=== PATIENT | female | born 1935 | race Asian ===

== ENCOUNTER 2016-05-02 22:31 | Inpatient (IN) | payer MEDICARE, MEDICAID ==
[2016-05-02] MEDS ORDERED: Diatrizoate Meglumine/Diatri 30 mL Sol ONE (23:19)
--- NOTE | 2016-05-02 23:37 | ED Physician Chart ---
Chief Complaint/HPI - Patient Information Date Seen:: 05/02/16 Time Seen:: 23:00 Chief Complaint:: G-tube leaking History of Present Illness:: report received that there was a tear in the G-tube. Allergies:: Allergies Allergy/AdvReac Type Severity Reaction Status Date / Time No Known Allergies Allergy Verified 11/23/15 10:12 Historian:: EMS, Other (report from [facility]) Review:: Nurse's Note Reviewed Review of Systems - Review of Systems General/Constitutional: No fever Skin: No skin lesions Head: No headache Eyes: No loss of vision ENT: No earache Neck: No neck pain Cardio Vascular: No chest pain, No palpitations Pulmonary: No SOB GI: No nausea, No vomiting Musculoskeletal: No bone or joint pain Endocrine: No polyuria, No polydipsia Psychiatric: Prior psych history Hematopoietic: No bruising Allergic/Immuno: No urticaria Neurological: No syncope Past Medical History - Past Medical History Past Medical History: HTN, Asthma/COPD, Other (encephalopathy; anxiety) Family History: Other (unavailable) Social History: Care Facility Surgical History: PEG/GTube Medication: Reviewed Family Medical History - Family Member Mother History Unknown: Yes father History Unknown: Yes Physical Exam - Physical Examination Other Gen/Cons comments:: chronically ill appearing Head: Atraumatic Eyes: Lids, conjuctiva normal, PERRL Skin: Nl inspection, No skin lesions ENMT: External ears, nose nl Neck: No nuchal rigidity Respiratory: Nl effort/Exclusion, Clear to Auscultation, No Wheeze/Rhonchi/Rales Cardio Vascular: RRR, No murmur, gallop, rubs GI: No tenderness/rebounding/guarding, No organomegaly, No hernia, Normal BS's, Nondistended, No mass/bruits : No CVA tenderness Extremities: No tenderness or effusion Neuro/Psych: Alert/oriented, No focal deficits Misc: Normal back Labs/Radiology/EKG Results - Lab Results Results: Laboratory Results - last 24 hr 05/03/16 05/03/16 00:05 00:05 WBC 7.8 D RBC 4.89 Hgb 13.9 Hct 42.2 D MCV 86.3 MCH 28.5 MCHC Differential 33.0 RDW 13.1 Plt Count 255 MPV 7.6 Neutrophils % 66.0 Lymphocytes % 22.1 Monocytes % 8.6 Eosinophils % 2.8 Basophils % 0.5 Sodium 139 Potassium 3.8 Chloride 105 Carbon Dioxide 29.3 Anion Gap 8.5 BUN 16 Creatinine 0.6 Est GFR ( Amer) TNP Est GFR (Non-Af Amer) TNP BUN/Creatinine Ratio 26.7 Glucose 97 Calcium 9.7 Lipase 33 - Radiology Results Results: KUB after gastrograffin injected into G-tube: proper position of G-tube; obstipation Assessment - Procedures Procedures:: skin cleanse with betadine swab; G-tube removed and replaced with #22 Fr G-tube. ED Septic Shock - . Is Septic Shock (SBP<90, OR Lactate>4 mmol\L) present?: No Reassessment (Disposition) - Reassessment Reassessment Condition:: Unchanged - Diagnosis Diagnosis:: G-tube replacement; obstipation - Patient Disposition Admitted to:: Med/Surg Spoke to:: Ruperto Licona Admitting Medical Physician:: Ruperto Licona Condition at Disposition:: Stable, Unchanged
[2016-05-03 00:15] LABS: % BASOPHILS 0.5 % (0.0-2.0); % EOSINOPHILS 2.8 % (0.0-5.0); % LYMPHOCYTES 22.1 % (20.0-50.0); % MONOCYTES 8.6 % (2.0-10.0); HEMOGLOBIN 13.9 gm/dL (11.7-16.1); MEAN CELL VOLUME 86.3 fl (81-100); MEAN CORPUSCULAR HEMOGLOBIN 28.5 pg (27.0-31.0); MEAN PLATELET VOLUME 7.6 fl; NEUTROPHILE ABSOLUTE 5.2 Th/cmm (1.8-8.0); PLATELET COUNT 255 Th/cmm (150-400); RED BLOOD COUNT 4.89 Mil/cmm (3.80-5.20); RED CELL DISTRIBUTION WIDTH 13.1 % (11.5-20.0)
[2016-05-03 00:21] LABS: HEMATOCRIT 42.2 % (35.0-45.0); WHITE BLOOD COUNT 7.8 Th/cmm (4.8-10.8)
[2016-05-03 00:29] LABS: ANION GAP 8.5 (7.0-16.0); BUN - UREA NITROGEN 16 mg/dL (7-25); BUN/CREATININE RATIO 26.7; CALCIUM SERUM 9.7 mg/dL (8.6-10.3); CARBON DIOXIDE 29.3 mEq/L (21.0-31.0); CHLORIDE 105 mEq/L (98-107); CREATININE - SERUM 0.6 mg/dL (0.6-1.2); GLUCOSE 97 mg/dL (70-105); LIPASE 33 U/L (11-82); POTASSIUM SERUM 3.8 mEq/L (3.5-5.1); SODIUM SERUM 139 mEq/L (136-145)
[2016-05-03 10:12] LABS: % EOSINOPHILS 2.6 % (0.0-5.0); % LYMPHOCYTES 24.1 % (20.0-50.0); % MONOCYTES 9.6 % (2.0-10.0); % NEUTROPHILS 62.7 % (40.0-80.0); HEMATOCRIT 39.2 % (35.0-45.0); HEMOGLOBIN 13.1 gm/dL (11.7-16.1); MEAN CORPUSCULAR HEMOGLOBIN 28.5 pg (27.0-31.0); MEAN CORPUSCULAR HGB CONC 33.5 pg (28.0-36.0); MEAN PLATELET VOLUME 7.6 fl; NEUTROPHILE ABSOLUTE 3.3 Th/cmm (1.8-8.0); PLATELET COUNT 226 Th/cmm (150-400); RED BLOOD COUNT 4.61 Mil/cmm (3.80-5.20); RED CELL DISTRIBUTION WIDTH 13.3 % (11.5-20.0)
[2016-05-03 10:16] LABS: WHITE BLOOD COUNT 5.3 Th/cmm (4.8-10.8)
[2016-05-03 10:32] LABS: ALB/GLOB RATIO 0.8 (1.0-1.8); ALKALINE PHOSPHATASE 101 U/L (34-104); ANION GAP 12.7 (7.0-16.0); BILIRUBIN,TOTAL 0.4 mg/dL (0.3-1.0); BUN - UREA NITROGEN 15 mg/dL (7-25); CALCIUM SERUM 9.4 mg/dL (8.6-10.3); CARBON DIOXIDE 29.3 mEq/L (21.0-31.0); CHLORIDE 105 mEq/L (98-107); CREATININE - SERUM 0.5 mg/dL (0.6-1.2); GLUCOSE 95 mg/dL (70-105); SGOT 39 U/L (13-39); SGPT/ALT 80 U/L (7-52); SODIUM SERUM 143 mEq/L (136-145)
[2016-05-03 10:50] VITALS: BP 128/57
--- NOTE | 2016-05-03 11:30 | Diagnostic Imaging Report ---
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 Stool-filled nondilated large bowel noted. Water-soluble contrast was instilled through the patient's gastrostomy tube. There is opacification of the gastric lumen with free flow contrast into the small bowel. No extravasation. IMPRESSION: 1. Confirmation of gastrostomy tube within the gastric lumen.
[2016-05-03] MEDS ORDERED: Lacosamide 10 mg/mL 10mL UDC GT SCH (14:00)
--- NOTE | 2016-05-03 14:39 | Consultation ---
GASTROENTEROLOGY CONSULTATION REQUESTING PHYSICIAN: Durga Licona M.D. REASON FOR CONSULTATION: Dysphagia. HISTORY OF PRESENT ILLNESS: An 80-year-old female with possible dementia and anorexia and G-tube insertion, whose G-tube became cracked and malfunctioned and leaking. It was replaced in the ER with a replacement type G-tube of 22-Polish. Contrast KUB confirmed that the G-tube was in satisfactory position of the stomach. She also was noted to have some constipation. We were asked to see the patient to reevaluate her G-tube. It appears to be in proper position. She is not eating much. PAST MEDICAL HISTORY: As above. MEDICATIONS: Here are acetaminophen p.r.n., Dulcolax p.r.n., Catapres p.r.n., lacosamide, Ativan p.r.n., multivitamin, Zyprexa, Protonix and Pneumovax. ALLERGIES: No known drug allergies. SOCIAL HISTORY: No recent tobacco, alcohol or drugs. FAMILY HISTORY: Noncontributory. REVIEW OF SYSTEMS: A comprehensive 12-point review of system was conducted and was only present for the signs and symptoms present in the history of present illness. PHYSICAL EXAMINATION: VITAL SIGNS: Temperature 98.1, blood pressure is 133/79, pulse of 85, respirations 18, O2 sat 96% on room air. GENERAL: The patient is well-developed, well-nourished female in no acute distress. HEENT: Sclerae nonicteric. Oropharynx is clear. CARDIOVASCULAR: Regular rate and rhythm. LUNGS: Clear to auscultation bilaterally. ABDOMEN: Soft, nontender. Intact replacement type G-tube in the epigastrium. EXTREMITIES: No clubbing, cyanosis or edema. RECTAL: Deferred. LABORATORY DATA AND IMAGING: Complete blood count is normal. Chemistries including liver enzymes are essentially unremarkable except for an ALT of 80, lipase normal. Upper GI series confirmed the G-tube is in proper position in the stomach. ASSESSMENT: 1. Dysphagia with G-tube leak and dysfunction and tear requiring replacement in the ER. KUB confirmed that the G-tube is in proper position in the stomach. 2. Constipation. 3. Anorexia. RECOMMENDATIONS: 1. Stool softeners as needed. 2. May use G-tube for medications and feedings. 3. Oral diet as tolerated. Thank you, Dr. Licona, for involving us in the care of your patient. If you have any further questions, please call us. JOB# [id number] MTDD
[2016-05-03] MEDS ORDERED: Pneumococcal Vaccine 0.5 mL Vial IM ONE (15:00)
[2016-05-03] MEDS: Pantoprazole 40 mg/Packet GT SCH (16:05)
[2016-05-03] MEDS: Multivitamin 5 mL UDC GT SCH (16:05)
[2016-05-03] MEDS ORDERED: Fleet Enema 135 mL RC PRN (19:56)
[2016-05-03] MEDS ORDERED: Magnesium Hydroxide (MOM) 30 mL UDC GT PRN (19:56)
[2016-05-03] MEDS ORDERED: Albuterol/Ipratropium Neb 3 ML AERS HHN PRN (19:56)
--- NOTE | 2016-05-03 19:56 | General Progress Note ---
Subjective - Review of Systems Service Date: 05/03/16 ([id number] h&p dictated) Objective - Results Result Diagrams: 05/03/16 09:55 05/03/16 09:55 Recent Labs: Laboratory Last Values WBC 5.3 Th/cmm (4.8-10.8) D 05/03/16 09:55 RBC 4.61 Mil/cmm (3.80-5.20) 05/03/16 09:55 Hgb 13.1 gm/dL (11.7-16.1) 05/03/16 09:55 Hct 39.2 % (35.0-45.0) 05/03/16 09:55 MCV 85.0 fl (81-100) 05/03/16 09:55 MCH 28.5 pg (27.0-31.0) 05/03/16 09:55 MCHC Differential 33.5 pg (28.0-36.0) 05/03/16 09:55 RDW 13.3 % (11.5-20.0) 05/03/16 09:55 Plt Count 226 Th/cmm (150-400) 05/03/16 09:55 MPV 7.6 fl 05/03/16 09:55 Neutrophils % 62.7 % (40.0-80.0) 05/03/16 09:55 Lymphocytes % 24.1 % (20.0-50.0) 05/03/16 09:55 Monocytes % 9.6 % (2.0-10.0) 05/03/16 09:55 Eosinophils % 2.6 % (0.0-5.0) 05/03/16 09:55 Basophils % 1.0 % (0.0-2.0) 05/03/16 09:55 Sodium 143 mEq/L (136-145) 05/03/16 09:55 Potassium 4.0 mEq/L (3.5-5.1) 05/03/16 09:55 Chloride 105 mEq/L (98-107) 05/03/16 09:55 Carbon Dioxide 29.3 mEq/L (21.0-31.0) 05/03/16 09:55 Anion Gap 12.7 (7.0-16.0) 05/03/16 09:55 BUN 15 mg/dL (7-25) 05/03/16 09:55 Creatinine 0.5 mg/dL (0.6-1.2) L 05/03/16 09:55 Est GFR ( Amer) TNP 05/03/16 09:55 Est GFR (Non-Af Amer) TNP 05/03/16 09:55 BUN/Creatinine Ratio 30.0 05/03/16 09:55 Glucose 95 mg/dL (70-105) 05/03/16 09:55 Calcium 9.4 mg/dL (8.6-10.3) 05/03/16 09:55 Total Bilirubin 0.4 mg/dL (0.3-1.0) 05/03/16 09:55 AST 39 U/L (13-39) 05/03/16 09:55 ALT 80 U/L (7-52) H 05/03/16 09:55 Alkaline Phosphatase 101 U/L (34-104) 05/03/16 09:55 Total Protein 7.4 gm/dL (6.0-8.3) 05/03/16 09:55 Albumin 3.3 gm/dL (3.7-5.3) L 05/03/16 09:55 Globulin 4.1 gm/dL 05/03/16 09:55 Albumin/Globulin Ratio 0.8 (1.0-1.8) L 05/03/16 09:55 Lipase 33 U/L (11-82) 05/03/16 00:05 - Physical Exam Vitals and I&O: Vital Signs Temp 97.3 F 05/03/16 16:00 Pulse 86 05/03/16 16:00 Resp 17 05/03/16 16:00 BP 120/69 05/03/16 16:00 Pulse Ox 96 05/03/16 16:00 Intake & Output 05/03/16 05/03/16 05/04/16 06:59 18:59 06:59 Weight (lbs) 56.699 kg Active Medications: Current Medications Acetaminophen (Tylenol 650mg/20.3ml Suspension) 650 mg GT Q4H PRN PRN Reason: Fever/Pain Stop: 07/02/16 09:57 Bisacodyl (Dulcolax 5 Mg Ec Tab) 10 mg PO DAILY PRN PRN Reason: Constipation Stop: 07/03/16 08:59 Clonidine HCl (Catapres) 0.1 mg PO Q6H PRN PRN Reason: SBP >160 Stop: 07/02/16 09:34 Heparin Sodium (Porcine) (Heparin) 5,000 units SUBQ Q12HR [facility] Stop: 07/02/16 20:59 Lacosamide (Vimpat) 100 mg GT DAILY [facility] Stop: 07/02/16 13:59 Last Admin: 05/03/16 16:05 Dose: Not Given Lorazepam (Ativan) 1 mg GT Q6H PRN; Protocol PRN Reason: Anxiety/Agitation Stop: 07/02/16 09:54 Multivitamins/Vitamin C (Theragran) 5 ml GT DAILY [facility]OY[facility] Stop: 07/02/16 11:29 Last Admin: 05/03/16 16:05 Dose: Not Given Olanzapine (Zyprexa) 1.25 mg GT BID ZOYA PRN Reason: Protocol Stop: 07/02/16 16:59 Last Admin: 05/03/16 16:37 Dose: 1.25 mg Pantoprazole Sodium (Protonix) 40 mg GT QDAC [facility] Stop: 07/02/16 11:29 Last Admin: 05/03/16 16:05 Dose: Not Given - Procedures Procedures: Procedures Procedure Code Date CHANGE FEEDING DEVICE IN UP INTEST TRACT, 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
--- NOTE | 2016-05-03 20:30 | History & Physical ---
CHIEF COMPLAINT: G-tube malfunction. HISTORY OF PRESENT ILLNESS: This is an 80-year-old elderly female who is transferred for G-tube malfunction. The patient's gastrostomy tube was replaced in the ER, the G-tube 22-Polish. A KUB was done and it confirmed that it was in place. PAST MEDICAL HISTORY: Dementia, anorexia. MEDICATIONS: Please see medication reconciliation sheet. ALLERGIES: No drug allergies. SOCIAL HISTORY: Patient is a retirement resident. FAMILY HISTORY: Noncontributory. REVIEW OF SYSTEMS: Unable to obtain. The patient is confused. PHYSICAL EXAMINATION: GENERAL: The patient is an elderly female in no apparent distress. VITAL SIGNS: Temperature 98.1, blood pressure 132/79, heart rate of 85, respirations 18, O2 96%. HEENT: PERRLA. No nasal deviation. CARDIOVASCULAR: S1, S2 present. LUNGS: Clear bilaterally. SKIN: Warm and dry to touch. ABDOMEN: Soft, nontender, nondistended. LABORATORY DATA: WBC 5.3, H and H 13.1, 39.2, platelet 226. Sodium 142, potassium 4.0, BUN 15, creatinine 0.5, ____. ASSESSMENT: 1.G-tube malfunction 2.Dysphagia. 3.Constipation. 4.Anorexia. PLAN: Continue patient on IV fluids for hydration. GI consult. Continue current plan of care. JOB# [id number]
[2016-05-04] MEDS: Pantoprazole 40 mg/Packet GT SCH (08:33)
[2016-05-04] MEDS: Multivitamin 5 mL UDC GT SCH (08:40)
[2016-05-04] MEDS ORDERED: POTASSIUM CHLORIDE GT SCH (09:00)
[2016-05-04] MEDS ORDERED: SODIUM CL GT SCH (09:00)
[2016-05-04] MEDS ORDERED: Non-Formulary Item 1 EA (Vit C/Ascorbate Ca/Ascorb Sod [Vitamin C 500 Mg/15 Ml Liquid] 500 GT SCH (09:00)
[2016-05-04] MEDS ORDERED: Multivitamin 5 mL UDC GT SCH (09:00)
[2016-05-04] MEDS ORDERED: Pantoprazole 40 mg/Packet GT SCH (09:00)
[2016-05-04 09:31] LABS: % BASOPHILS 0.4 % (0.0-2.0); % EOSINOPHILS 2.6 % (0.0-5.0); % LYMPHOCYTES 26.7 % (20.0-50.0); % MONOCYTES 7.7 % (2.0-10.0); % NEUTROPHILS 62.6 % (40.0-80.0); HEMATOCRIT 39.9 % (35.0-45.0); HEMOGLOBIN 13.2 gm/dL (11.7-16.1); MEAN CELL VOLUME 85.7 fl (81-100); MEAN CORPUSCULAR HEMOGLOBIN 28.4 pg (27.0-31.0); MEAN CORPUSCULAR HGB CONC 33.1 pg (28.0-36.0); MEAN PLATELET VOLUME 8.1 fl; NEUTROPHILE ABSOLUTE 2.8 Th/cmm (1.8-8.0); PLATELET COUNT 219 Th/cmm (150-400); RED BLOOD COUNT 4.66 Mil/cmm (3.80-5.20); RED CELL DISTRIBUTION WIDTH 13.6 % (11.5-20.0); WHITE BLOOD COUNT 4.4 Th/cmm (4.8-10.8)
[2016-05-04 09:44] LABS: ALB/GLOB RATIO 0.8 (1.0-1.8); ALKALINE PHOSPHATASE 98 U/L (34-104); ANION GAP 7.3 (7.0-16.0); BILIRUBIN,TOTAL 0.3 mg/dL (0.3-1.0); BUN - UREA NITROGEN 21 mg/dL (7-25); CALCIUM SERUM 9.6 mg/dL (8.6-10.3); CHLORIDE 104 mEq/L (98-107); CREATININE - SERUM 0.6 mg/dL (0.6-1.2); GLUCOSE 127 mg/dL (70-105); POTASSIUM SERUM 4.3 mEq/L (3.5-5.1); SGOT 40 U/L (13-39); SGPT/ALT 80 U/L (7-52); SODIUM SERUM 138 mEq/L (136-145)
== END 2016-05-04 14:15 | DRG 394 ==
LOC: ER 22:31 → MSI 05-03 01:09
PROVIDERS: ADMIT Internal Medicine; ATTEND Internal Medicine
PROC: 0D20XUZ Change Feeding Device in Upper Intestinal Tract, External Approach (ICD-10-PCS; principal; 2016-05-03)
DX: K94.23 Gastrostomy malfunction (principal); E44.1 Mild protein-calorie malnutrition; R63.0 Anorexia; F03.90 Unspecified dementia, unspecified severity, without behavioral disturbance, psychotic disturbance, mood disturbance, and anxiety; R13.10 Dysphagia, unspecified; K59.00 Constipation, unspecified; I10 Essential (primary) hypertension; J45.909 Unspecified asthma, uncomplicated; F41.9 Anxiety disorder, unspecified; Y83.8 Other surgical procedures as the cause of abnormal reaction of the patient, or of later complication, without mention of misadventure at the time of the procedure; Y92.89 Other specified places as the place of occurrence of the external cause; Z68.22 Body mass index [BMI] 22.0-22.9, adult
CPT/HCPCS: 36415-UA; 80048-TC; 80053-TC; 83690-TC; 85025-TC; 94760; J1644; Z7610

== ENCOUNTER 2017-04-21 01:39 | Inpatient (IN) | payer MEDICARE, MEDICAID ==
[2017-04-21 02:16] LABS: HEMATOCRIT 42.1 % (41.0-60); HEMOGLOBIN 13.8 gm/dL (12-16); MEAN CELL VOLUME 85.2 fl (81-100); MEAN CORPUSCULAR HEMOGLOBIN 27.8 pg (27.0-31.0); MEAN CORPUSCULAR HGB CONC 32.7 pg (28.0-36.0); MEAN PLATELET VOLUME 7.5 fl; PLATELET COUNT 258 Th/cmm (150-400); RED BLOOD COUNT 4.94 Mil/cmm (3.80-5.20); RED CELL DISTRIBUTION WIDTH 14.3 % (11.5-20.0); WHITE BLOOD COUNT 9.1 Th/cmm (4.8-10.8)
[2017-04-21 02:30] LABS: ANION GAP 10.4 (7.0-16.0); BUN - UREA NITROGEN 17 mg/dL (7-25); CALCIUM SERUM 9.5 mg/dL (8.6-10.3); CARBON DIOXIDE 27.5 mEq/L (21.0-31.0); CHLORIDE 104 mEq/L (98-107); CREATININE - SERUM 0.5 mg/dL (0.6-1.2); GLUCOSE 102 mg/dL (70-105); POTASSIUM SERUM 3.9 mEq/L (3.5-5.1); SODIUM SERUM 138 mEq/L (136-145)
--- NOTE | 2017-04-21 02:32 | ED Physician Chart ---
ED Chief Complaint/HPI - Patient Information Date Seen:: 04/21/17 Time Seen:: 02:26 Chief Complaint:: Dislodged G tube History of Present Illness:: 81 yo female was found to have a dislodged G-tube about 3 hours ago. She was brought by BLS to ER. Allergies:: Allergies Allergy/AdvReac Type Severity Reaction Status Date / Time No Known Allergies Allergy Verified 04/21/17 01:49 Vitals:: Vital Signs - 8 hr 04/21/17 01:59 Temp 98.2 F HR 92 RR 18 BP 153/89 O2 Sat % 98 ED Review of Systems - Review of Systems General/Constitutional: No fever Skin: No bruising Head: No headache Eyes: No pain ENT: No nasal drainage Neck: No neck pain Cardio Vascular: No chest pain Pulmonary: No SOB GI: No nausea, No vomiting Musculoskeletal: No bone or joint pain Neurological: No focal symptoms ED Past Medical History - Past Medical History Past Medical History: HTN, Asthma/COPD, Seizures, Other (Dysphagia) Social History: Non Smoker, No Alcohol, No Drug Use Surgical History: None Family Medical History - Family Member Mother History Unknown: Yes father History Unknown: Yes Ethnicity: Non- ED Physical Exam - Physical Examination General/Constitutional: Awake Head: Atraumatic Eyes: PERRL Skin: No ecchymosis ENMT: Nasal exam nl Neck: No nuchal rigidity Respiratory: No Wheeze/Rhonchi/Rales Cardio Vascular: RRR, No murmur, gallop, rubs, NL S1 S2 GI: No tenderness/rebounding/guarding Other GI comments:: G tube was dislodged from the site. No bleeding, no purulent drainage Extremities: normal strength in all extremities Neuro/Psych: No focal deficits ED Labs/Radiology/EKG Results - Lab Results Results: Laboratory Tests 04/21/17 02:05 WBC 9.1 D RBC 4.94 Hgb 13.8 Hct 42.1 MCV 85.2 MCH 27.8 MCHC Differential 32.7 RDW 14.3 Plt Count 258 MPV 7.5 ED Assessment - Assessment General Assessment: Dislodged G-tube Assessment/Comments:: Insert a 20 Fr Gotti catheter to keep the G-tube site patent Admit to med surg for replacement of G-tube ED Septic Shock - . Is Septic Shock (SBP<90, OR Lactate>4 mmol\L) present?: No - <6hrs of presentation: Vital Signs: Vital Signs - 8 hr 04/21/17 01:59 Temp 98.2 F HR 92 RR 18 BP 153/89 O2 Sat % 98 ED Reassessment (Disposition) - Reassessment Reassessment Condition:: Unchanged - Patient Disposition Discharge/Transfer:: Acute Care w/in this hosp Admitting Medical Physician:: Ruperto Licona (s) ED Discharge Plan - Patient Disposition Admit/Discharge/Transfer: Acute Care w/in this hosp Condition at Disposition: Stable
[2017-04-21 02:33] LABS: INR 0.92 (0.5-1.4); PROTHROMBIN TIME (TEST) 9.6 SECONDS (9.5-11.5)
[2017-04-21 02:37] LABS: BAND NEUTROPHILE 2 % (0-10); BASOPHIL 1 % (0-3); EOSINOPHIL 3 % (0-5); LYMPHOCYTE 18 % (20-50); MONOCYTE 6 % (2-10); NEUTROPHILS 70 % (40-80); PLATELET ESTIMATE ADEQUATE (NORMAL); TOTAL CELLS COUNTED 100
[2017-04-21] MEDS ORDERED: Sodium Chloride 0.9% 1,000 ML IV ONE (02:53)
[2017-04-21 15:33] VITALS: BP 145/71
[2017-04-21] MEDS: D5-0.45NS 1,000 ML IV SCH (18:52)
--- NOTE | 2017-04-22 01:11 | History & Physical ---
ADMIT DATE: 04/21/2017 HISTORY OF PRESENT ILLNESS: The patient came from [facility] because the patient was very agitated, took out and pulled out her G-tube, and also there was leakage and erythema and swelling around the G-tube site. The patient is known to have history of hypertension, asthma, COPD, and seizures in the past. The patient also had some problem with and the patient came in. PHYSICAL EXAMINATION: VITAL SIGNS: Blood pressure on Dyazide 153/89, temperature 98.2, and heart rate was 82. GENERAL: She is confused, alert. HEAD: Normal. ENT: Normal. LUNGS: Bilaterally clear. CARDIOVASCULAR SYSTEM: S1, S2 heard. ABDOMEN: Soft. Bowel sounds are heard. CENTRAL NERVOUS SYSTEM: Decreased sensorium. DIAGNOSES: Dementia, history of prior hypertension, asthma, chronic obstructive pulmonary disease, history of cerebrovascular accident in the past, history of seizures, and G-tube status post G-tube dislodgement. PLAN: The patient will be admitted and we will have Dr. Rolando Mccall see the patient for possible G-tube infection, G-tube insertion. I will follow the patient. JOB# [id number]
[2017-04-22] MEDS ORDERED: Diatrizoate Meglumine/Diatri 30 mL Sol PO ONE (09:35)
--- NOTE | 2017-04-22 09:48 | Operative Report ---
DATE OF SURGERY: 04/22/2017 INPATIENT G-TUBE SITE CHANGE PROCEDURE ENDOSCOPIST: Joey Koch M.D. PREOPERATIVE DIAGNOSIS: G-tube malfunction. POSTOPERATIVE DIAGNOSIS: G-tube placement. INDICATION: The patient is an 81-year-old female with previous stroke and dysphagia and G-tube dependence, who pulled out her G-tube yesterday at her nursing care facility and was admitted to the hospital where a Gotti catheter was inserted into the tract. She is here for replacement at bedside. Consent was not obtained given the lack of sedation and bedside nature of this procedure. PROCEDURE IN DETAIL: The patient was in the supine position. The gastrocutaneous fistula was identified in the left upper quadrant. There was a Gotti catheter within this tract. The balloon was attempted to be deflated of the Gotti, but this was not able to be deflated as it was not inflated in the first place. The Gotti catheter easily was able to be pulled out without resistance. Next, a 22-Liberian balloon-type G-tube was inserted into the gastrocutaneous fistula with ease. There was no resistance. After insertion the internal balloon was inflated to 15 mL with normal saline. Gentle traction on the tube demonstrated the appropriate amount of resistance at the internal abdominal wall. RECOMMENDATIONS: 1. We will confirm this tube with a KUB and Gastrografin injection. If confirmed, it can be used for feeds and medications with the previous diet that had already been ordered. 2. Flush the G-tube with 100 mL of water every [address] an abdominal binder to prevent the patient from pulling the G-tube in the future. Thank you for allowing me to participate in the care of this patient. Please call with any further questions. JOB# [id number]
--- NOTE | 2017-04-22 11:23 | Diagnostic Imaging Report ---
Upper GI (Limited) HISTORY: Gastrostomy tube placement Water-soluble contrast was instilled through the patient's gastrostomy tube. The exam demonstrates opacification of the gastric lumen with flow of contrast into the small bowel. IMPRESSION: 1. Confirmation of gastrostomy tube within the gastric lumen.
[2017-04-22] MEDS ORDERED: Fleet Enema 135 mL RC PRN (13:50)
[2017-04-22] MEDS ORDERED: Magnesium Hydroxide (MOM) 30 mL UDC GT PRN (13:50)
[2017-04-22] MEDS ORDERED: Multivitamin w/ Minerals Tab GT SCH (17:00)
[2017-04-22] MEDS ORDERED: POTASSIUM CHLORIDE GT SCH (17:00)
[2017-04-22] MEDS ORDERED: SODIUM CL GT SCH (17:00)
[2017-04-22] MEDS: D5-0.45NS 1,000 ML IV SCH (18:06)
--- NOTE | 2017-04-22 19:06 | Internal Medicine Prog Note ---
Internal Medicine Subjective - Subjective Service Date: 04/22/17 Patient seen and examined:: with staff Patient is:: awake Per staff patient has:: tolerating meds Internal Medicine Objective - Results Result Diagrams: 04/21/17 02:05 04/21/17 02:05 Recent Labs: Laboratory Last Values WBC 9.1 Th/cmm (4.8-10.8) D 04/21/17 02:05 RBC 4.94 Mil/cmm (3.80-5.20) 04/21/17 02:05 Hgb 13.8 gm/dL (12-16) 04/21/17 02:05 Hct 42.1 % (41.0-60) 04/21/17 02:05 MCV 85.2 fl (81-100) 04/21/17 02:05 MCH 27.8 pg (27.0-31.0) 04/21/17 02:05 MCHC Differential 32.7 pg (28.0-36.0) 04/21/17 02:05 RDW 14.3 % (11.5-20.0) 04/21/17 02:05 Plt Count 258 Th/cmm (150-400) 04/21/17 02:05 MPV 7.5 fl 04/21/17 02:05 Band Neutrophils % 2 % (0-10) 04/21/17 02:05 Neutrophils (Manual) 70 % (40-80) 04/21/17 02:05 Lymphocytes 18 % (20-50) L 04/21/17 02:05 Monocytes 6 % (2-10) 04/21/17 02:05 Eosinophils 3 % (0-5) 04/21/17 02:05 Basophils 1 % (0-3) 04/21/17 02:05 Platelet Estimate ADEQUATE (NORMAL) 04/21/17 02:05 PT 9.6 SECONDS (9.5-11.5) 04/21/17 02:05 INR 0.92 (0.5-1.4) 04/21/17 02:05 Sodium 138 mEq/L (136-145) 04/21/17 02:05 Potassium 3.9 mEq/L (3.5-5.1) 04/21/17 02:05 Chloride 104 mEq/L (98-107) 04/21/17 02:05 Carbon Dioxide 27.5 mEq/L (21.0-31.0) 04/21/17 02:05 Anion Gap 10.4 (7.0-16.0) 04/21/17 02:05 BUN 17 mg/dL (7-25) 04/21/17 02:05 Creatinine 0.5 mg/dL (0.6-1.2) L 04/21/17 02:05 Est GFR ( Amer) TNP 04/21/17 02:05 Est GFR (Non-Af Amer) TNP 04/21/17 02:05 BUN/Creatinine Ratio 34.0 04/21/17 02:05 Glucose 102 mg/dL (70-105) 04/21/17 02:05 Calcium 9.5 mg/dL (8.6-10.3) 04/21/17 02:05 - Physical Exam Vitals and I&O: Vital Signs Temp 96.8 F 04/22/17 08:00 Pulse 74 04/22/17 08:00 Resp 17 04/22/17 08:00 BP 110/59 04/22/17 08:00 Pulse Ox 95 04/22/17 08:00 Intake & Output 04/22/17 04/22/17 04/23/17 06:59 18:59 06:59 Intake Total 1000 Balance 1000 Weight (lbs) 56.699 kg Intake: Intake, IV Amount 1000 D5-0.45NS 1,000 ml @ 50 1000 mls/hr IV .Q20H [facility] Rx#: [id number] Active Medications: Current Medications Acetaminophen (Tylenol) 650 mg GT Q4H PRN PRN Reason: mild pain or temp >100.4 Stop: 06/21/17 13:49 Bisacodyl (Dulcolax 10 Mg Supp) 10 mg RC DAILY PRN PRN Reason: MOM ineffective Stop: 06/21/17 13:49 Calcium/Vitamin D (Oscal W/Vitamin D) 1 tab GT TID [facility] Stop: 06/21/17 20:59 Docusate Sodium (Colace) 100 mg PO BID [facility] Stop: 06/21/17 16:59 Last Admin: 04/22/17 18:06 Dose: 100 mg Heparin Sodium (Porcine) (Heparin) 5,000 units SUBQ Q12HR [facility] Stop: 06/20/17 20:59 Last Admin: 04/22/17 08:31 Dose: 5,000 units Dextrose/Sodium Chloride (D5-0.45ns) 1,000 mls @ 50 mls/hr IV .Q20H [facility] Stop: 06/20/17 18:59 Last Admin: 04/22/17 18:06 Dose: 50 mls/hr Lacosamide (Vimpat) 100 mg GT DAILY [facility] Stop: 06/22/17 08:59 Magnesium Hydroxide (Milk Of Magnesia) 30 ml GT DAILY PRN PRN Reason: no BM x2 days Stop: 06/21/17 13:49 Miscellaneous (Sodium Cl/Potassium Chloride [Thermotabs Tablet]) 2 tab GT BID [facility] Stop: 06/21/17 16:59 Miscellaneous (Vit C/Ascorbate Ca/Ascorb Sod [Vitamin C 500 Mg/15 Ml Liquid]) 500 mg GT BID [facility] Stop: 06/21/17 16:59 Pantoprazole Sodium (Protonix) 40 mg GT DAILY [facility] Stop: 06/22/17 08:59 Sodium Phosphate (Fleet Enema) 135 ml RC DAILY PRN PRN Reason: if MOM or dulcolax ineffective Stop: 06/21/17 13:49 General: weak HEENT: NC/AT, PERRLA Neck: Supple Lungs: CTAB Cardiovascular: RRR, Normal S1, Normal S2 Abdomen: soft, non-tender - Procedures Procedures: Procedures Procedure Code Date CHANGE FEEDING DEVICE IN UP INTEST TRACT, FIELD SPECIALIST APPROACH [id number] 05/03/16 CHANGE GASTROSTOMY TUBE 90265 05/03/16 Internal Medicine Assmt/Plan - Assessment Assessment: dementia htn asthma copd hx cva seizure disorder gt status - Plan Plan: seizure precuations follow up labs in am cpm Nutritional Asmnt/Malnutr-PDOC - Dietary Evaluation Malnutrition Findings (Please click <Entered> for more info): Nutritional Asmnt/Malnutrition Start: 04/22/17 16: 31 Text: Status: Complete Freq: Document 04/22/17 16:31 LIZETT (Rec: 04/22/17 17:03 [email or web address] [id number]) Nutritional Asmnt/Malnutrition Patient General Information Nutritional Screening High Risk Diagnosis G tube malfunction Pertinent Medical Hx/Surgical Hx HTN, COPD, asthma, seizure Subjective Information Pt seen lying in bed at time of visit. Per notes, pt had G- tube placement this morning. Current Diet Order/ Nutrition Support Isosource 1.5 30ml/hr continuous, providing 1080kcal and 49g protein Pertinent Medications oscal w/vitamin D, d5-0.45ns, protonix Pertinent Labs 04/21 Na 138, CK 3.9, Cl 104, BUN 17, Cr 0.5,glucose 102, ca 9.5 Nutritional Hx/Data Height 1.57 m Height (Calculated Centimeters) 157.5 Current Weight (lbs) 56.699 kg Weight (Calculated Kilograms) 56.7 Weight (Calculated Grams) 01438.0 Castile Body Weight 110 % Cast[place] Body Weight 113 Body Mass Index (BMI) 22.8 GI Symptoms GI Symptoms None Last BM no record Difficult in: None Skin Integrity/Comment: isosource 1.5 30ml x 20hr Estimated Nutritional Goals BEE in Kcals: Using Current wt Calories/Kcals/Kg 25-30 Kcals Calculated 2964-4126 Protein: Using Current wt Protein g/k-1.2 Protein Calculated 57-68 Fluid: ml 1425-1710ml (1ml/kcal) Nutritional Problem 1. Problem Problem inadequate intake from enteral feeding Etiology TF regimen not meeting 100% of nutritional needs Signs/Symptoms: TF only meet 75% of calorie needs and 85% of protein needs Malnutrition Alert Protein-Calorie Malnutrition N/A Is there a minimum of two criteria No selected? Query Text:Check all the applicable criteria. A minimum of two criteria are recommended for diagnosis of either severe or non-severe malnutrition. Intervention/Recommendation Comments 1. Recommend Isosource 1.5 40ml/hr continuous. This will provide 1440kcal, 65g protein and 747ml free water, meeting 100% of nutritional needs 2. Monitor TF rate, tolerance, wt weekly, skin integrity and labs 3. F/U as moderate risk in 3-5 days, 04/25-04/27 Expected Outcomes/Goals Expected Outcomes/Goals 1. Pt to meet at least 75% of nutritional needs via nutrition support with tolerance 2. Wt stability, skin to remain intact, labs to approach WNL.
[2017-04-22] MEDS: Calcium Carb/Vit D 500 mg/200 U Tab GT SCH (22:52)
--- NOTE | 2017-04-22 23:58 | Consultation ---
DATE OF CONSULTATION: 04/22/2017 INPATIENT GASTROINTESTINAL CONSULTATION CONSULTING PHYSICIAN: Dr. Licona. REASON FOR CONSULTATION: Malfunctioning G-tube. HISTORY OF PRESENT ILLNESS: The patient is an 81-year-old female with past medical history significant for hypertension, COPD, previous stroke in the past, dysphagia, G-tube dependence, who was brought into the hospital after she became agitated and pulled at her G-tube at [facility]. After the G-tube was pulled, there was report of leakage around the site. The balloon may have still been intact. Within the Emergency Room, a Gotti catheter was placed within the tract and the patient was admitted to have the G-tube replaced at bedside. At the current moment, the patient has no complaints. She reports that she will not pull on the G-tube when asked and the Gotti catheter is within the tract without any bleeding or leakage. PAST MEDICAL HISTORY: COPD, asthma, hypertension, cerebrovascular accident in the past, history of seizures, dysphagia with G-tube dependence. PAST SURGICAL HISTORY: G-tube insertion. FAMILY HISTORY: Noncontributory. SOCIAL HISTORY: There is no documented history of illicit drug use. The patient is a permanent resident of [facility]. REVIEW OF SYSTEMS: Not possible given the patient has reduced mental status. CURRENT MEDICATIONS: Include heparin subcu and IV fluids. PHYSICAL EXAMINATION: VITAL SIGNS: The blood pressure is 155/80, temperature 97.9, pulse 97 beats per minute, respiratory rate of 18, oxygenation 98% on room air. GENERAL: The patient is lying flat in bed, alert and oriented x 1-2, no apparent distress. HEAD, EARS, EYES, NOSE AND THROAT: Normocephalic, atraumatic appearing head. Pupils equal and reactive to light. Extraocular muscles are intact. Moist mucous membranes. NECK: Supple, no JVD, no thyromegaly, no lymphadenopathy. CHEST: Clear to auscultation bilaterally. CARDIOVASCULAR: S1, S2 present, tachycardic. ABDOMEN: Soft, nontender. There is a G-tube gastrocutaneous fistula in the left upper quadrant. Has a Gotti catheter in place. There is some erythematous granulation tissue on the superior side of the tract. No bleeding, no erythema around the tract. EXTREMITIES: No pitting edema. Pulses are present. SKIN: No obvious jaundice. LABORATORY DATA: White blood cell count 9.1, hemoglobin 13.8, platelet count is 258. INR 0.9. Sodium 138, BUN 17, creatinine 0.5, no abdominal imaging was performed. IMPRESSION: This is an 81-year-old female with previous stroke and dysphagia with G-tube dependence, who had pulled out her G-tube at her nursing care facility yesterday and is now admitted with a Gotti catheter within the tract. 1. G-tube dislodgement and malfunction. 2. Previous stroke. 3. Dysphagia with G-tube dependence. DISCUSSION: On current exam, there is a Gotti catheter within the tract that moves easily. Thus, the tract is likely to be open. There is granulation tissue, which can result from pulling on the G-tube and the G-tube lying over the skin. If leakage continues to occur after replacement, then further treatment of the granulation area with silver nitrate sticks. RECOMMENDATIONS: 1. We will replace the G-tube at bedside with a 22-Uzbek tube. 2. Recommend abdominal binder to prevent the patient from pulling out the tube in the future. 3. If there is leakage after the replacement tube is placed and confirmed, then consider silver nitrate sticks to the granulation area. Thank you for allowing me to participate in the care of this patient. Please call with any further questions. JOB# [id number]
--- NOTE | 2017-04-23 08:38 | GI Progress Note ---
Subjective - Review of Systems Service Date: 04/23/17 Subjective: G tube confirmed, no leaking Objective - Results Result Diagrams: 04/21/17 02:05 04/21/17 02:05 Recent Labs: Laboratory Last Values WBC 9.1 Th/cmm (4.8-10.8) D 04/21/17 02:05 RBC 4.94 Mil/cmm (3.80-5.20) 04/21/17 02:05 Hgb 13.8 gm/dL (12-16) 04/21/17 02:05 Hct 42.1 % (41.0-60) 04/21/17 02:05 MCV 85.2 fl (81-100) 04/21/17 02:05 MCH 27.8 pg (27.0-31.0) 04/21/17 02:05 MCHC Differential 32.7 pg (28.0-36.0) 04/21/17 02:05 RDW 14.3 % (11.5-20.0) 04/21/17 02:05 Plt Count 258 Th/cmm (150-400) 04/21/17 02:05 MPV 7.5 fl 04/21/17 02:05 Band Neutrophils % 2 % (0-10) 04/21/17 02:05 Neutrophils (Manual) 70 % (40-80) 04/21/17 02:05 Lymphocytes 18 % (20-50) L 04/21/17 02:05 Monocytes 6 % (2-10) 04/21/17 02:05 Eosinophils 3 % (0-5) 04/21/17 02:05 Basophils 1 % (0-3) 04/21/17 02:05 Platelet Estimate ADEQUATE (NORMAL) 04/21/17 02:05 PT 9.6 SECONDS (9.5-11.5) 04/21/17 02:05 INR 0.92 (0.5-1.4) 04/21/17 02:05 Sodium 138 mEq/L (136-145) 04/21/17 02:05 Potassium 3.9 mEq/L (3.5-5.1) 04/21/17 02:05 Chloride 104 mEq/L (98-107) 04/21/17 02:05 Carbon Dioxide 27.5 mEq/L (21.0-31.0) 04/21/17 02:05 Anion Gap 10.4 (7.0-16.0) 04/21/17 02:05 BUN 17 mg/dL (7-25) 04/21/17 02:05 Creatinine 0.5 mg/dL (0.6-1.2) L 04/21/17 02:05 Est GFR ( Amer) TNP 04/21/17 02:05 Est GFR (Non-Af Amer) TNP 04/21/17 02:05 BUN/Creatinine Ratio 34.0 04/21/17 02:05 Glucose 102 mg/dL (70-105) 04/21/17 02:05 Calcium 9.5 mg/dL (8.6-10.3) 04/21/17 02:05 - Physical Exam Vitals and I&O: Vital Signs Temp 97.4 F 04/23/17 08:15 Pulse 79 04/23/17 08:15 Resp 18 04/23/17 08:15 BP 117/70 04/23/17 08:15 Pulse Ox 96 04/23/17 08:15 Intake & Output 04/22/17 04/23/17 04/23/17 18:59 06:59 18:59 Intake Total 1000 340 Balance 1000 340 Weight (lbs) 56.699 kg 56.699 kg Intake: Intake, IV Amount 1000 D5-0.45NS 1,000 ml @ 50 1000 mls/hr IV .Q20H [facility] Rx#: [id number] Tube Feeding 340 Other: # Voids 3 # Bowel Movements 1 Active Medications: Current Medications Acetaminophen (Tylenol) 650 mg GT Q4H PRN PRN Reason: mild pain or temp >100.4 Stop: 06/21/17 13:49 Ascorbic Acid (Vitamin C) 500 mg GT BID [facility] Stop: 06/22/17 08:59 Bisacodyl (Dulcolax 10 Mg Supp) 10 mg RC DAILY PRN PRN Reason: MOM ineffective Stop: 06/21/17 13:49 Calcium/Vitamin D (Oscal W/Vitamin D) 1 tab GT TID [facility] Stop: 06/21/17 20:59 Last Admin: 04/22/17 22:52 Dose: 1 tab Docusate Sodium (Colace) 100 mg PO BID [facility] Stop: 06/21/17 16:59 Last Admin: 04/22/17 18:06 Dose: 100 mg Heparin Sodium (Porcine) (Heparin) 5,000 units SUBQ Q12HR [facility] Stop: 06/20/17 20:59 Last Admin: 04/22/17 22:52 Dose: 5,000 units Dextrose/Sodium Chloride (D5-0.45ns) 1,000 mls @ 50 mls/hr IV .Q20H [facility] Stop: 06/20/17 18:59 Last Admin: 04/22/17 18:06 Dose: 50 mls/hr Lacosamide (Vimpat) 100 mg GT DAILY [facility] Stop: 06/22/17 08:59 Magnesium Hydroxide (Milk Of Magnesia) 30 ml GT DAILY PRN PRN Reason: no BM x2 days Stop: 06/21/17 13:49 Miscellaneous (Sodium Cl/Potassium Chloride [Thermotabs Tablet]) 2 tab GT BID [facility] Stop: 06/21/17 16:59 Pantoprazole Sodium (Protonix) 40 mg GT DAILY [facility] Stop: 06/22/17 08:59 Sodium Phosphate (Fleet Enema) 135 ml RC DAILY PRN PRN Reason: if MOM or dulcolax ineffective Stop: 06/21/17 13:49 General: Alert HEENT: Atraumatic, PERRLA Neck: Supple Cardiovascular: Regular rate Abdomen: Bowel sounds, Soft, Other (no guard, no rebound, G tube site c/d/i) - Procedures Procedures: Procedures Procedure Code Date CHANGE FEEDING DEVICE IN UP INTEST TRACT, JOCKEY ROOM CUSTODIAN APPROACH [id number] 04/21/17 CHANGE GASTROSTOMY TUBE 71039 04/21/17 Assessment/Plan - Assessment Assessment: # G tube malfunction # Dysphagia # Dementia # CVA G tube replaced 04/22 at bedside and confirmed to be in place. Functioning well Plan: - cont feeds via new G tube to goal rate - hold for residual greater than 150cc - flush with 100cc water every 6 hours - cont abdominal binder GI to see as needed, please call with any questions
[2017-04-23] MEDS: Calcium Carb/Vit D 500 mg/200 U Tab GT SCH ×2 (08:45→14:25)
[2017-04-23] MEDS ORDERED: Pantoprazole 40 mg/Packet GT SCH (09:00)
[2017-04-23] MEDS ORDERED: Ascorbic Acid 500 mg/5 mL UDC GT SCH ×2 (09:00→09:15)
--- NOTE | 2017-04-23 09:54 | General Progress Note ---
Subjective - Review of Systems Events since last encounter: patient with gtube no distress no change Objective - Results Result Diagrams: 04/21/17 02:05 04/21/17 02:05 Recent Labs: Laboratory Last Values WBC 9.1 Th/cmm (4.8-10.8) D 04/21/17 02:05 RBC 4.94 Mil/cmm (3.80-5.20) 04/21/17 02:05 Hgb 13.8 gm/dL (12-16) 04/21/17 02:05 Hct 42.1 % (41.0-60) 04/21/17 02:05 MCV 85.2 fl (81-100) 04/21/17 02:05 MCH 27.8 pg (27.0-31.0) 04/21/17 02:05 MCHC Differential 32.7 pg (28.0-36.0) 04/21/17 02:05 RDW 14.3 % (11.5-20.0) 04/21/17 02:05 Plt Count 258 Th/cmm (150-400) 04/21/17 02:05 MPV 7.5 fl 04/21/17 02:05 Band Neutrophils % 2 % (0-10) 04/21/17 02:05 Neutrophils (Manual) 70 % (40-80) 04/21/17 02:05 Lymphocytes 18 % (20-50) L 04/21/17 02:05 Monocytes 6 % (2-10) 04/21/17 02:05 Eosinophils 3 % (0-5) 04/21/17 02:05 Basophils 1 % (0-3) 04/21/17 02:05 Platelet Estimate ADEQUATE (NORMAL) 04/21/17 02:05 PT 9.6 SECONDS (9.5-11.5) 04/21/17 02:05 INR 0.92 (0.5-1.4) 04/21/17 02:05 Sodium 138 mEq/L (136-145) 04/21/17 02:05 Potassium 3.9 mEq/L (3.5-5.1) 04/21/17 02:05 Chloride 104 mEq/L (98-107) 04/21/17 02:05 Carbon Dioxide 27.5 mEq/L (21.0-31.0) 04/21/17 02:05 Anion Gap 10.4 (7.0-16.0) 04/21/17 02:05 BUN 17 mg/dL (7-25) 04/21/17 02:05 Creatinine 0.5 mg/dL (0.6-1.2) L 04/21/17 02:05 Est GFR ( Amer) TNP 04/21/17 02:05 Est GFR (Non-Af Amer) TNP 04/21/17 02:05 BUN/Creatinine Ratio 34.0 04/21/17 02:05 Glucose 102 mg/dL (70-105) 04/21/17 02:05 Calcium 9.5 mg/dL (8.6-10.3) 04/21/17 02:05 - Physical Exam Vitals and I&O: Vital Signs Temp 97.4 F 04/23/17 08:15 Pulse 79 04/23/17 08:15 Resp 18 04/23/17 08:15 BP 117/70 04/23/17 08:15 Pulse Ox 96 04/23/17 08:15 Intake & Output 04/22/17 04/23/17 04/23/17 18:59 06:59 18:59 Intake Total 1000 340 Balance 1000 340 Weight (lbs) 56.699 kg 56.699 kg Intake: Intake, IV Amount 1000 D5-0.45NS 1,000 ml @ 50 1000 mls/hr IV .Q20H [facility] Rx#: [id number] Tube Feeding 340 Other: # Voids 3 # Bowel Movements 1 Active Medications: Current Medications Acetaminophen (Tylenol) 650 mg GT Q4H PRN PRN Reason: mild pain or temp >100.4 Stop: 06/21/17 13:49 Ascorbic Acid (Vitamin C) 500 mg PO BID [facility] Stop: 06/22/17 16:59 Bisacodyl (Dulcolax 10 Mg Supp) 10 mg RC DAILY PRN PRN Reason: MOM ineffective Stop: 06/21/17 13:49 Calcium/Vitamin D (Oscal W/Vitamin D) 1 tab GT TID [facility] Stop: 06/21/17 20:59 Last Admin: 04/23/17 08:45 Dose: 1 tab Docusate Sodium (Colace) 100 mg PO BID [facility] Stop: 06/21/17 16:59 Last Admin: 04/23/17 08:45 Dose: 100 mg Heparin Sodium (Porcine) (Heparin) 5,000 units SUBQ Q12HR [facility] Stop: 06/20/17 20:59 Last Admin: 04/23/17 08:45 Dose: 5,000 units Dextrose/Sodium Chloride (D5-0.45ns) 1,000 mls @ 50 mls/hr IV .Q20H [facility] Stop: 06/20/17 18:59 Last Admin: 04/22/17 18:06 Dose: 50 mls/hr Lacosamide (Vimpat) 100 mg GT DAILY [facility] Stop: 06/22/17 08:59 Last Admin: 04/23/17 08:45 Dose: 100 mg Magnesium Hydroxide (Milk Of Magnesia) 30 ml GT DAILY PRN PRN Reason: no BM x2 days Stop: 06/21/17 13:49 Miscellaneous (Sodium Cl/Potassium Chloride [Thermotabs Tablet]) 2 tab GT BID [facility] Stop: 06/21/17 16:59 Pantoprazole Sodium (Protonix) 40 mg GT DAILY [facility] Stop: 06/22/17 08:59 Last Admin: 04/23/17 08:45 Dose: 40 mg Sodium Phosphate (Fleet Enema) 135 ml RC DAILY PRN PRN Reason: if MOM or dulcolax ineffective Stop: 06/21/17 13:49 General: Alert HEENT: Atraumatic, PERRLA Neck: Supple Cardiovascular: Regular rate Abdomen: Bowel sounds, Soft, Other (no guard, no rebound, G tube site c/d/i) - Procedures Procedures: Procedures Procedure Code Date CHANGE FEEDING DEVICE IN UP INTEST TRACT, IT APPLICATIONS ANALYST APPROACH [id number] 04/21/17 CHANGE GASTROSTOMY TUBE 01222 04/21/17 Assessment/Plan - Assessment Assessment: dementia htn asthma copd hx cva seizure disorder gt status - Plan Plan: seizure precuations follow up labs in am cpm Nutritional Asmnt/Malnutr-PDOC - Dietary Evaluation Malnutrition Findings (Please click <Entered> for more info): Nutritional Asmnt/Malnutrition Start: 04/22/17 16: 31 Text: Status: Complete Freq: Document 04/22/17 16:31 LIZETT (Rec: 04/22/17 17:03 [email or web address] [id number]) Nutritional Asmnt/Malnutrition Patient General Information Nutritional Screening High Risk Diagnosis G tube malfunction Pertinent Medical Hx/Surgical Hx HTN, COPD, asthma, seizure Subjective Information Pt seen lying in bed at time of visit. Per notes, pt had G- tube placement this morning. Current Diet Order/ Nutrition Support Isosource 1.5 30ml/hr continuous, providing 1080kcal and 49g protein Pertinent Medications oscal w/vitamin D, d5-0.45ns, protonix Pertinent Labs 04/21 Na 138, CK 3.9, Cl 104, BUN 17, Cr 0.5,glucose 102, ca 9.5 Nutritional Hx/Data Height 1.57 m Height (Calculated Centimeters) 157.5 Current Weight (lbs) 56.699 kg Weight (Calculated Kilograms) 56.7 Weight (Calculated Grams) 39921.0 [place] Body Weight 110 % [place] Body Weight 113 Body Mass Index (BMI) 22.8 GI Symptoms GI Symptoms None Last BM no record Difficult in: None Skin Integrity/Comment: isosource 1.5 30ml x 20hr Estimated Nutritional Goals BEE in Kcals: Using Current wt Calories/Kcals/Kg 25-30 Kcals Calculated [id number] Protein: Using Current wt Protein g/k-1.2 Protein Calculated 57-68 Fluid: ml 1425-1710ml (1ml/kcal) Nutritional Problem 1. Problem Problem inadequate intake from enteral feeding Etiology TF regimen not meeting 100% of nutritional needs Signs/Symptoms: TF only meet 75% of calorie needs and 85% of protein needs Malnutrition Alert Protein-Calorie Malnutrition N/A Is there a minimum of two criteria No selected? Query Text:Check all the applicable criteria. A minimum of two criteria are recommended for diagnosis of either severe or non-severe malnutrition. Intervention/Recommendation Comments 1. Recommend Isosource 1.5 40ml/hr continuous. This will provide 1440kcal, 65g protein and 747ml free water, meeting 100% of nutritional needs 2. Monitor TF rate, tolerance, wt weekly, skin integrity and labs 3. F/U as moderate risk in 3-5 days, 04/25-04/27 Expected Outcomes/Goals Expected Outcomes/Goals 1. Pt to meet at least 75% of nutritional needs via nutrition support with tolerance 2. Wt stability, skin to remain intact, labs to approach WNL.
[2017-04-23] MEDS ORDERED: Ascorbic Acid 500 mg/5 mL UDC PO SCH (17:00)
--- NOTE | 2017-04-26 21:31 | Discharge Summary ---
DATE OF DISCHARGE: A well known patient is from [place]. Apparently, the patient had pulled out her G-tube and had some infection around the G-tube site, was sent to [place], was admitted. The patient has a past history of hypertension, asthma, COPD, and seizures. The patient had a GI consult done and they placed G-tube and also was given G-tube ____ antibiotics and Dr. Rolando Mccall saw the patient, the patient improved. The patient was in stable condition on 04/23/2017. FINAL DIAGNOSIS: Status post G-tube replacement, cellulitis improving, history of hypertension, history of chronic obstructive pulmonary disease, history of seizures, and ____. The patient was sent back to [place] where I will be following the patient. JOB# [id number]
== END 2017-04-23 16:36 | disposition home or self-care (01) | DRG 394 ==
LOC: ER 01:39 → MSI 11:20
PROVIDERS: ADMIT Internal Medicine; ATTEND Internal Medicine
PROC: 0D20XUZ Change Feeding Device in Upper Intestinal Tract, External Approach (ICD-10-PCS; principal; 2017-04-22)
DX: K94.23 Gastrostomy malfunction (principal); L03.311 Cellulitis of abdominal wall; F03.90 Unspecified dementia, unspecified severity, without behavioral disturbance, psychotic disturbance, mood disturbance, and anxiety; G40.909 Epilepsy, unspecified, not intractable, without status epilepticus; R13.10 Dysphagia, unspecified; J44.9 Chronic obstructive pulmonary disease, unspecified; I10 Essential (primary) hypertension; Z86.73 Personal history of transient ischemic attack (TIA), and cerebral infarction without residual deficits; Z66 Do not resuscitate; K94.22 Gastrostomy infection; Y83.8 Other surgical procedures as the cause of abnormal reaction of the patient, or of later complication, without mention of misadventure at the time of the procedure; Y92.89 Other specified places as the place of occurrence of the external cause
CPT/HCPCS: 36415-UA; 80048-TC; 85007-TC; 85027-TC; 85610-TC; 93005; J1644; Z7610